=== PATIENT | male | born 1965 | race Caucasian/White ===

== ENCOUNTER 2018-06-17 12:09 | Emergency (ER) | payer MEDICARE, MEDICAID ==
[~2018-06-17] VITALS: Ht 121.9 cm; Wt 98.0 kg
[2018-06-17 12:20] VITALS: BP 128/64
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
--- NOTE | 2018-06-17 12:34 | NUR ---
MD TO BEDSIDE FOR ASSESSMENT
--- NOTE | 2018-06-17 12:42 | NUR ---
PT TAKEN TO RAD
[2018-06-17] MEDS ORDERED: LIDOCAINE-MPF 1%, 5ML INFIL ONE (13:00)
--- NOTE | 2018-06-17 13:35 | NUR ---
TECHS AT BEDSIDE TO IRRIGATE WOUND
--- NOTE | 2018-06-17 13:47 | NUR ---
PA AT BEDSIDE FOR SUTURING
[2018-06-17] MEDS ORDERED: HYDROmorphone 1 MG/ML, 1ML VIAL ONE (13:59)
[2018-06-17] MEDS ORDERED: HYDROmorphone 2 MG/ML, 1ML IM ONE (14:00)
--- NOTE | 2018-06-17 14:09 | NUR ---
PT MEDICATED FOR PAIN PER MAR. SUTURES COMPLETE. AWAITING DR XIAO AT THIS TIME
--- NOTE | 2018-06-17 14:51 | NUR ---
STILL AWAITING NINOSKA. PT RESTING COMFORTABLY IN BED WITH FAMILY AT BEDSIDE. TALKING AND LAUGHING, SITTING UP IN BED. CALL LIGHT WITHIN REACH, WILL CONTINUE TO MONITOR.
--- NOTE | 2018-06-17 14:54 | NUR ---
NINOSKA AT BEDSIDE FOR ASSESSMENT.
== END 2018-06-17 15:21 | disposition home or self-care (01) ==
LOC: ED 14:13
DX: S01.81XA Laceration without foreign body of other part of head, initial encounter (principal); S02.32XA Fracture of orbital floor, left side, initial encounter for closed fracture; Z89.612 Acquired absence of left leg above knee; W07.XXXA Fall from chair, initial encounter; Y93.89 Activity, other specified; Y92.410 Unspecified street and highway as the place of occurrence of the external cause; Y99.8 Other external cause status
CPT/HCPCS: 12052; 70450; 70486; 73030; 73060; 96372; 99284; J1170

== ENCOUNTER 2018-06-17 12:10 | Emergency (ER) | payer SELFPAY ==
[2018-06-17] MEDS ORDERED: LIDOCAINE-MPF 1%, 5ML ONE (12:40)
== END 2018-06-17 12:13 | disposition home or self-care (01) ==
LOC: EDBD → ED 12:10 → MERGE 12:10 → ED 12:13
DX: Z02.9 Encounter for administrative examinations, unspecified (principal)
CPT/HCPCS: 12052; 99284